=== PATIENT | female | born 1955 | race Caucasian/White ===

== ENCOUNTER 2019-01-10 18:19 | Emergency (ER) | payer OTHER ==
[~2019-01-10] VITALS: Ht 154.9 cm; Wt 51.7 kg
--- NOTE | 2019-01-10 18:32 | NUR ---
ED Nurse Note: pt walked in due to pain on the right knee x 1 month. denies trauma. pt stated she took motrin and had a relief. now the pain is 4/10. pt able to ambulate. ermd on bedside. xray order. awaiting for the tech.. will continue to monitor.
--- NOTE | 2019-01-10 19:05 | NUR ---
ER DISCHARGE NOTE: Patient is cleared to be discharged per ERMD, pt is aox4, on room air, with stable vital signs. pt was given dc and prescription instructions, pt was able to verbalize understanding, pt id band removed without complications. pt is able to ambulate with steady gait. pt took all belongings.
[2019-01-10 19:10] VITALS: BP 105/71
[2019-01-10] MEDS ORDERED: TYLENOL EXTRA500 MG ORAL (19:14)
--- NOTE | 2019-01-10 19:31 | Emergency Room Report ---
History of Present Illness General Chief Complaint: Lower Extremity Injury Source: Patient Present Illness HPI 63-year-old female presents ED for evaluation. Complaining of right knee pain. Started about one month ago. States she's been trying physical therapy with her friend but states there is not much relief. Denies any fall or injury. States that pain is worse when she goes up stairs or ladder. Pain is throbbing , it 7 out of 10, nonradiating. No other aggravating relieving factors. Denies any other associated symptoms Allergies: Coded Allergies: No Known Allergies (Unverified , 01/10/19) Patient History Past Medical History: none Past Surgical History: none Pertinent Family History: none Social History: Denies: smoking, alcohol use, drug use Now: No Immunizations: UTD Reviewed Nursing Documentation: PMH: Agreed; PSxH: Agreed Nursing Documentation-PMH Past Medical History: No Stated History Review of Systems All Other Systems: negative except mentioned in HPI Physical Exam Vital Signs Date Time Temp Pulse Resp B/P (MAP) Pulse Ox O2 Delivery O2 Flow Rate FiO2 01/10/19 18:22 98.4 69 18 105/71 97 Room Air Sp02 EP Interpretation: reviewed, normal General Appearance: no apparent distress, alert, GCS 15, non-toxic Head: normocephalic Eyes: bilateral eye normal inspection, bilateral eye PERRL ENT: normal ENT inspection Neck: normal inspection Respiratory: normal inspection Cardiovascular #1: normal inspection Gastrointestinal: normal inspection Rectal: deferred Genitourinary: no CVA tenderness Musculoskeletal: normal range of motion, tender - R knee Neurologic: alert, oriented x3, responsive, motor strength/tone normal, sensory intact, speech normal Psychiatric: normal inspection Skin: normal inspection Lymphatic: normal inspection Medical Decision Making Diagnostic Impression: Primary Impression: Knee pain Qualified Codes: M25.561 - Pain in right knee; G89.29 - Other chronic pain ER Course Hospital Course 63-year-old M presents to ED complaining of R knee pain x 1 month Differential diagnoses include: Fracture, dislocation, sprain, contusion Clinical course Patient placed on stretcher. After initial history and physical, I ordered Xrays of R knee Xrays prelim read shows no acute fracture/dislocation. Discussed findings with patient. Pain is localized mostly to the distal insertion of the quadriceps and hamstring. Likely tendinitis. Recommend conservative therapy with ice, Tylenol, moderation of activity Will also provide orthopedic referrals. Safe for discharge close outpatient follow-up Diagnosis - knee pain Stable and discharged to home with prescription for tylenol. apply ice, keep elevated. weight bear as tolerated. Followup with pmd/ortho. Return to ED if symptoms recur or worsen Other X-Ray Diagnostic Results Other X-Ray Diagnostic Results : X-Ray ordered: R knee # of Views/Limited Vs Complete: 3 View Indication: Pain EP Interpretation: Yes Interpretation: no dislocation, no soft tissue swelling, no fractures Impression: No acute disease Electronically Signed by: Electronically signed by Ajay Cervantes MD Last Vital Signs Date Time Temp Pulse Resp B/P (MAP) Pulse Ox O2 Delivery O2 Flow Rate FiO2 01/10/19 19:10 98.4 18 105/71 97 Room Air 01/10/19 18:22 69 Status: improved Disposition: HOME, SELF-CARE Condition: Stable Scripts Acetaminophen* (TYLENOL EXTRA STRENGTH*) 500 Mg Tablet 500 MG ORAL Q6H PRN for Mild Pain/Temp > 100.5, #30 TAB 0 Refills Prov: Ajay Cervantes MD 01/10/19 Referrals: [facility] Open 24 hour /7 days a week by Appointment Only [address] [facility] [id number] Patient Instructions: Patellar Tendinitis With [facility] Ajay Cervantes MD Jan 10, 2019 19:31
--- NOTE | 2019-01-11 08:25 | Diagnostic Imaging Report ---
Indications: Right knee pain Technique: Three views of the right knee Comparison: None Findings: No acute fractures. No dislocations. Joint spaces are preserved. No radiopaque foreign body. Normal mineralization. Impression: No acute process
== END 2019-01-10 19:19 | disposition home or self-care (01) ==
LOC: EMR 18:55
DX: M25.561 Pain in right knee (principal); G89.29 Other chronic pain
CPT/HCPCS: 99283